=== PATIENT | male | born 1975 | race Caucasian/White ===

== ENCOUNTER → 2021-09-09 11:45 | Outpatient (BNVA) | payer MEDICARE, SELFPAY | PROVIDERS: Visit Provider Family Medicine | DX: G62.9 Polyneuropathy, unspecified (principal); Z76.89 Persons encountering health services in other specified circumstances; R35.89 Other polyuria; I87.2 Venous insufficiency (chronic) (peripheral) | CPT/HCPCS: 82043 ==

== ENCOUNTER 2021-09-10 09:49 | Outpatient (CLI) | payer MEDICARE, SELFPAY ==
[2021-09-10 10:42] LABS: Basophils # 0.1 10^3/uL (0.0-0.1); Basophils % 0.8 %; Eosinophils # 0.2 10^3/uL (0.0-0.8); Eosinophils % 3.6 %; Hematocrit 50.3 % (42.0-52.0); Hemoglobin 16.3 g/dL (11.7-16.6); Lymphocytes # 1.8 10^3/uL (0.8-4.8); Lymphocytes % 27.9 %; Mean Corpuscular HGB Conc 32.4 g/dL (30.0-36.0); Mean Corpuscular Hemoglobin 28.6 pg (28.0-34.0); Mean Corpuscular Volume 88.2 fl (80-94); Monocytes # 0.5 10^3/uL (0.2-0.9); Monocytes % 8.2 %; Neutrophils # 3.71 10^3/uL (1.8-7.7); Neutrophils % 58.4 %; Nucleated Red Blood Cells % 0 %; Platelet Count 147 10^3/cmm (130-400); Red Cell Distribution Width 12.4 % (12.1-15.1); White Blood Count 6.4 10^3/uL (4.0-10.0)
[2021-09-10 11:11] LABS: Alanine Aminotransferase 16 U/L (0-41); Albumin Level 4.4 g/dL (3.5-5.2); Alkaline Phosphatase 109 IU/L (40-130); Anion Gap 12.8 (5-19); Aspartate Amino Transferase 20 U/L (0-40); Blood Urea Nitrogen 17 mg/dL (6-20); Calcium 9.2 mg/dL (8.5-10.5); Carbon Dioxide 27 mmol/L (22-29); Chloride 104 mmol/L (98-107); Chol HDL Ratio 5.24 mg/dL (1.0-5.00); Cholesterol 194 mg/dL (0-200); Globulin 3.2 g/dL (1.3-4.6); Glomerular Filtration Rate 81.2 mL/min (90-130); Glucose 103 mg/dL (65-115); HDL Cholesterol 37 mg/dL (60-100); LDL Cholesterol Calculated 108 mg/dL (50-129); LDL HDL Ratio 2.92 RATIO (0.00-3.22); Osmolality Calculated 290 mOsm/kg (285-295); Potassium 4.8 mmol/L (3.5-5.1); Sodium 139 mmol/L (136-145); Thyroid Stimulating Hormone 2.11 uIU/mL (0.27-4.20); Total Bilirubin 0.4 mg/dL (0.15-1.2); Total Protein 7.6 g/dL (6.6-8.7); Triglycerides 244 mg/dL (0-150)
[2021-09-10 11:40] LABS: Hepatitis C Virus Antibody Non-Reactive (Nonreactive)
[2021-09-10 11:49] LABS: Estmated Average Glucose 97
[2021-09-10 11:52] LABS: HIV 1 & 2 Antibody Non-Reactive (Non-Reactiv); HIV 1 & 2 Antigen Non-Reactive (Non-Reactiv)
== END 2021-09-10 09:50 | disposition home or self-care (01) ==
LOC: LAB 09:51
PROVIDERS: Visit Provider Family Medicine
DX: G62.9 Polyneuropathy, unspecified (principal); I87.2 Venous insufficiency (chronic) (peripheral); R35.89 Other polyuria; Z76.89 Persons encountering health services in other specified circumstances
CPT/HCPCS: 80053; 80061; 83036; 84443; 85025; 86803; 87806

== ENCOUNTER 2021-10-22 12:17 | Outpatient (CLI) | payer MEDICARE, SELFPAY ==
[2021-10-22 13:18] LABS: Erythrocyte Sedimentation Rate 6 mm/hr (0-10)
[2021-10-22 13:44] LABS: Anion Gap 13.2 (5-19); Blood Urea Nitrogen 17 mg/dL (6-20); Calcium 8.8 mg/dL (8.5-10.5); Carbon Dioxide 27 mmol/L (22-29); Chloride 103 mmol/L (98-107); Ferritin 54 ng/mL (30-400); Glomerular Filtration Rate 80.8 mL/min (90-130); Glucose 102 mg/dL (65-115); Iron 105 ug/dL (59-158); Magnesium 2.1 mg/dL (1.7-2.3); Osmolality Calculated 290 mOsm/kg (285-295); Potassium 4.2 mmol/L (3.5-5.1); Sodium 139 mmol/L (136-145)
[2021-10-22 14:00] LABS: Vitamin B12 407 pg/mL (232-1245)
[2021-10-22 14:58] LABS: Rapid Plasma Reagin Syphilis Nonreactive (Nonreactive)
[2021-10-23 10:47] LABS: PROTEIN, TOTAL 6.7 g/dL (6.1-8.1)
[2021-10-23 13:49] LABS: Lymes IGG WB <0.90 index
[2021-10-23 15:08] LABS: ALBUMIN 4.1 g/dL (3.8-4.8); ALPHA 1 GLOBULIN 0.3 g/dL (0.2-0.3); ALPHA 2 GLOBULIN 0.6 g/dL (0.5-0.9); BETA 1 GLOBULIN 0.4 g/dL (0.4-0.6); BETA 2 GLOBULIN 0.3 g/dL (0.2-0.5); GAMMA GLOBULIN 1.1 g/dL (0.8-1.7)
[2021-10-23 16:24] LABS: Anti-Nuclear Antibody Screen NEGATIVE (NEGATIVE)
[2021-10-28 00:23] LABS: Vitamin B1(Thiamin) Plas/Ser 14 nmol/L (8-30)
== END 2021-10-22 12:18 | disposition home or self-care (01) ==
LOC: LAB 12:21
PROVIDERS: Visit Provider Family Medicine
DX: G62.9 Polyneuropathy, unspecified (principal); I87.2 Venous insufficiency (chronic) (peripheral); R35.89 Other polyuria
CPT/HCPCS: 36415; 80048; 82607; 82728; 83540; 83735; 84155; 84165; 84425; 85651; 86038; 86140; 86431; 86592; 86617; 87040

== ENCOUNTER → 2022-01-27 15:00 | Outpatient (BNVA) | payer MEDICARE, SELFPAY | PROVIDERS: Visit Provider Family Medicine | DX: I87.2 Venous insufficiency (chronic) (peripheral) (principal); R35.89 Other polyuria; N41.1 Chronic prostatitis; R31.9 Hematuria, unspecified | CPT/HCPCS: 81000 ==

== ENCOUNTER → 2022-05-11 10:44 | Outpatient (BNVA) | payer MEDICARE, SELFPAY | PROVIDERS: Visit Provider Family Medicine Adult Medicine | DX: J11.1 Influenza due to unidentified influenza virus with other respiratory manifestations (principal); B34.9 Viral infection, unspecified | CPT/HCPCS: 87400 ==

== ENCOUNTER 2022-06-25 09:49 | Emergency (ER) | payer MEDICARE, SELFPAY ==
[2022-06-25] VITALS (10 sets, daily range): BP systolic 138–197; BP diastolic 89–115; PULSE 60–76; RESP 13–20; TEMP 36.6; O2SAT 97–99; BMI 35.6
--- NOTE | 2022-06-25 10:19 | XRR_ITS ---
PROCEDURE INFORMATION: Exam: XR Chest Exam date and time: 06/25/2022 11:08 AM Age: 46 years old Clinical indication: Pain; Left-sided; Additional info: Chest pain on left side. TECHNIQUE: Imaging protocol: Radiologic exam of the chest. Views: 1 view. COMPARISON: No relevant prior studies available. FINDINGS: Lungs: The lung parenchyma is clear. Pleural spaces: No pneumothorax. No pleural effusion. Heart/Mediastinum: The cardiomediastinal silhouette is within normal limits. Bones/joints: Unremarkable. XR/XR chest 1V portable [id number] IMPRESSION: No acute cardiopulmonary abnormality.
--- NOTE | 2022-06-25 10:20 | ECG_ITS ---
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 Measurements Intervals [place] Rate: 70 P: 57 TN: 210 QRS: 72 QRSD: 104 T: 65 QT: 395 QTc: 429 Interpretive Statements SINUS RHYTHM WITH FIRST DEGREE AV BLOCK No previous ECG available for comparison Electronically Signed On 06-25-2022 14:42:05 VENTILATED RIB FITTER by Carl Goel M.D. [id number]
[2022-06-25 11:14] LABS: Basophils % 0.6 %; Eosinophils # 0.2 10^3/uL (0.0-0.8); Eosinophils % 2.5 %; Hematocrit 41.5 % (42.0-52.0); Hemoglobin 13.8 g/dL (11.7-16.6); Lymphocytes # 1.4 10^3/uL (0.8-4.8); Lymphocytes % 21.4 %; Mean Corpuscular HGB Conc 33.3 g/dL (30.0-36.0); Mean Corpuscular Hemoglobin 28.2 pg (28.0-34.0); Mean Corpuscular Volume 84.9 fl (80-94); Mean Platelet Volume 10.6 fL (7.4-10.4); Monocytes # 0.4 10^3/uL (0.2-0.9); Monocytes % 5.7 %; Neutrophils # 4.46 10^3/uL (1.8-7.7); Neutrophils % 69.3 %; Nucleated Red Blood Cells % 0 %; Platelet Count 199 10^3/cmm (130-400); Red Blood Count 4.89 10^6/uL (4.1-5.3); Red Cell Distribution Width 12.8 % (12.1-15.1); White Blood Count 6.4 10^3/uL (4.0-10.0)
--- NOTE | 2022-06-25 11:17 | ED_ITS ---
HPI - Chest Pain General: Chief Complaint: Chest Pain Stated Complaint: left side/abd pain Time Seen by Provider: 06/25/22 10:03 Source: patient Mode of arrival: ambulatory History of Present Illness: 46-year-old male presents emergency room complaining of left-sided chest pain for the last 3 days. Worse this morning is on is anything that exacerbates or relieves is not really taking anything for it. No vomiting or diarrhea no known history of coronary artery disease. Denies shortness of breath diaphoresis. No recent illness. MD complaint: chest pain Onset (ago): day(s) (3) Timing of current episode: episodic Prior episodes: Yes Onset: during rest Pain location: left chest Pain radiation: none Quality: tightness, aching and heaviness Relieving factors: nothing Associated symptoms: Deny abdominal pain, diaphoresis, dyspnea, fever(s), leg edema, nausea, palpitations, sense of impending doom, syncope or vomiting Treatment prior to arrival: none Review of Systems Const: Denies: fever(s), chills, fatigue, malaise or diaphoresis ENMT: Denies: throat pain, ear or mastoid pain, nasal discharge or nasal conge stion Card: Reports: chest pain; Denies: palpitations or syncope Resp: Denies: dyspnea GI: Denies: abdominal pain, nausea or vomiting : Denies: flank pain, dysuria, urinary frequency or urinary urgency Skin/Breast: Denies: rash or pruritus [facility] ED PFSH: Medical History Viral syndrome Social History Smoking and tobacco status: current every day smoker Alcohol intake: never Physical Exam Const: COMMON NORMALS: no acute distress GENERAL APPEARANCE: cooperative and comfortable ORIENTATION/CONSCIOUSNESS: Yes awake, Yes oriented to person, Yes oriented to place and Yes oriented to time HENMT: COMMON NORMALS: normocephalic, atraumatic, hearing grossly normal bilaterally, external ears normal, EAC's normal, TM's normal bilaterally, Normal nasal mucous membranes and turbinates present, moist oral mucous membranes and oropharynx normal HEAD & SCALP: normocephalic and atraumatic NOSE: Normal nasal mucous membranes and turbinates present EXTERNAL EAR: Yes external ears normal EXTERNAL AUDITORY CANAL: EAC's normal TYMPANIC MEMBRANE: TM's normal bilaterally Eye: COMMON NORMALS: Equal, round and reactive pupils present, EOMs intact bilaterally, conjunctivae normal and no scleral icterus CONJUNCTIVA: Yes conjunctivae normal PUPIL: Yes Equal, round and reactive pupils present Neck/C-Spine: COMMON NORMALS: full ROM, no lymphadenopathy, supple and no JVD Lymph: LYMPHATIC: no lymphadenopathy noted and no lymphedema noted Resp: COMMON NORMALS: normal respiratory effort, No retractions, No use of accessory muscles and clear to auscultation bilaterally AUSCULTATION: clear to auscultation bilaterally Cardio: COMMON NORMALS: no JVD, regular rate, regular rhythm and No murmurs present (Cardio) RATE: regular rate RHYTHM: regular rhythm GI: COMMON NORMALS: Soft to palpation and No hepatosplenomegaly present AUSCULTATION: Yes normoactive bowel sounds PALPATION: Yes Soft to palpation, No Tenderness to palpation present (GI), No Guarding due to palpation present (GI) and Yes No hepatosplenomegaly present Extremity: COMMON NORMALS: normal to inspection, capillary refill normal, no clubbing, cyanosis or edema, no calf tenderness and no pedal edema Neuro: SENSORIUM/ORIENTATION: Yes oriented to person, Yes oriented to place and Yes oriented to time Skin: COMMON NORMALS: no rashes or lesions noted GENERAL SKIN EXAM: no rashes or lesions noted Course Vital Signs: Vital signs: Vital Signs Temperature 98 F 06/25/22 10:09 Pulse Rate 62 06/25/22 15:00 Respiratory Rate 16 06/25/22 14:00 Blood Pressure 142/89 06/25/22 15:29 Pulse Oximetry 98 06/25/22 15:00 Oxygen Delivery Me thod 06/25/22 15:00 MDM - Chest Pain Medical Decision Making Labs imaging and EKG reviewed. No acute EKG changes noted cardiac enzymes negative. We will discharge patient home encouraged to take aspirin daily set him up for outpatient Lexiscan sestamibi stress test. Should monitor blood pressure was elevated and is here but there is improved before he left did not discharge him home on medications for it. Medical Records I reviewed the patient's medical records. Lab Data I reviewed the patient's lab results. 06/25/22 11:03 06/25/22 11:03 Radiology Impressions Chest X-Ray 06/25/22 10:19 IMPRESSION: No acute cardiopulmonary abnormality. Laboratory Results WBC 6.4 10^3/uL (4.0-10.0) 06/25/22 11:03 RBC 4.89 10^6/uL (4.1-5.3) 06/25/22 11:03 Hgb 13.8 g/dL (11.7-16.6) 06/25/22 11:03 Hct 41.5 % (42.0-52.0) L 06/25/22 11:03 MCV 84.9 fl (80-94) 06/25/22 11:03 MCH 28.2 pg (28.0-34.0) 06/25/22 11:03 MCHC 33.3 g/dL (30.0-36.0) 06/25/22 11:03 RDW 12.8 % (12.1-15.1) 06/25/22 11:03 Plt Count 199 10^3/cmm (130-400) 06/25/22 11:03 MPV 10.6 fL (7.4-10.4) H 06/25/22 11:03 Neut % (Auto) 69.3 % 06/25/22 11:03 Lymph % (Auto) 21.4 % 06/25/22 11:03 [place] % (Auto) 5.7 % 06/25/22 11:03 Eos % (Auto) 2.5 % 06/25/22 11:03 Baso % (Auto) 0.6 % 06/25/22 11:03 Neut # (Auto) 4.46 10^3/uL (1.8-7.7) 06/25/22 11:03 Lymph # (Auto) 1.4 10^3/uL (0.8-4.8) 06/25/22 11:03 [place]o # (Auto) 0.4 10^3/uL (0.2-0.9) 06/25/22 11:03 Eos # (Auto) 0.2 10^3/uL (0.0-0.8) 06/25/22 11:03 Baso # (Auto) 0.0 10^3/uL (0.0-0.1) 06/25/22 11:03 Nucleated RBC % (auto) 0 % 06/25/22 11:03 Nucleated RBCs # 0.0 /100WBC 06/25/22 11:03 PT 13.30 SECONDS (12.1-14.9) 06/25/22 11:03 INR 0.98 (0.8-1.2) 06/25/22 11:03 APTT 28.7 SECONDS (23.9-36.7) 06/25/22 11:03 Sodium 138 mmol/L (136-145) 06/25/22 11:03 Potassium 4.8 mmol/L (3.5-5.1) 06/25/22 11:03 Chloride 101 mmol/L (98-107) 06/25/22 11:03 Carbon Dioxide 28 mmol/L (22-29) 06/25/22 11:03 Anion Gap 13.8 (5-19) 06/25/22 11:03 BUN 20 mg/dL (6-20) 06/25/22 11:03 Creatinine 1.1 mg/dL (0.7-1.2) 06/25/22 11:03 GFR Calculation 72.4 mL/min (90-130) L 06/25/22 11:03 Glucose 98 mg/dL (65-115) 06/25/22 11:03 Calculated Osmolality 289 mOsm/kg (285-295) 06/25/22 11:03 Calcium 9.0 mg/dL (8.5-10.5) 06/25/22 11:03 Total Bilirubin 0.3 mg/dL (0.15-1.2) 06/25/22 11:03 AST 19 U/L (0-40) 06/25/22 11:03 ALT 14 U/L (0-41) 06/25/22 11:03 Alkaline Phosphatase 101 U/L (40-130) 06/25/22 11:03 Troponin T Baseline 8 ng/L (0-15) 06/25/22 11:03 Troponin T 120 Minute 7.85 ng/L (0-15) 06/25/22 13:48 Delta Troponin T -0.15 ABS# (0-10) L 06/25/22 13:48 Total Protein 7.5 g/dL (6.6-8.7) 06/25/22 11:03 Albumin 4.5 g/dL (3.5-5.2) 06/25/22 11:03 Globulin 3.0 g/dL (1.3-4.6) 06/25/22 11:03 Lipase 24 U/L (13-60) 06/25/22 11:03 Discharge Plan Discharge Patient Disposition: Home Clinical Impression: Atypical chest pain Condition: Stable Prescriptions: New aspirin 81 mg tablet,delayed release (DR/EC) 81 mg PO DAILY Qty: 30 0RF diclofenac sodium 75 mg tablet,delayed release (DR/EC) 75 mg PO Q12H PRN (Reason: pain) Qty: 20 0RF No Action (DME) Compression stockings See Rx Instructions .Route .MEDSUPPLY Qty: 2 0RF Rx Instructions: Please issue 2 pair of knee high compression stockings with 10-20 mmHg. Discharge Orders: Discharge ED (Routine); Ordered 06/25/22 Ordered By: Kvng Cisneros Referrals: Dickson Tavarez, [Primary Care Provider] - Discharge Diet: Usual diet Discharge Activity: Limit activity as instructed Patient Instructions: Opioid Safety, Pain Management Activity Restrictions/Additional Instructions: You were seen today for atypical chest pain. Your cardiac enzymes and EKG did not show any acute changes. Your blood pressure was elevated when you arrived and then normalized. We will set you up for an outpatient Lexiscan sestamibi stress test recommend that you do take baby aspirin daily until that is completed and avoid strenuous activities. Diclofenac for the chest wall pain worsened by inspiration and palpation. Return if you have further problems. Coding Level of Care Code ED Construction Project Manager for Thierry Castellanos
[2022-06-25] MEDS: ketorolac 30 mg/mL INJ IVP (11:28)
[2022-06-25 11:31] LABS: INR 0.98 (0.8-1.2)
[2022-06-25 11:32] LABS: Partial Thromboplastin Time 28.7 SECONDS (23.9-36.7)
[2022-06-25 11:40] LABS: Troponin(5th) Baseline 8 ng/L (0-15)
[2022-06-25 11:43] LABS: Alanine Aminotransferase 14 U/L (0-41); Albumin Level 4.5 g/dL (3.5-5.2); Alkaline Phosphatase 101 U/L (40-130); Anion Gap 13.8 (5-19); Aspartate Amino Transferase 19 U/L (0-40); Blood Urea Nitrogen 20 mg/dL (6-20); Carbon Dioxide 28 mmol/L (22-29); Chloride 101 mmol/L (98-107); Glomerular Filtration Rate 72.4 mL/min (90-130); Glucose 98 mg/dL (65-115); Lipase 24 U/L (13-60); Osmolality Calculated 289 mOsm/kg (285-295); Potassium 4.8 mmol/L (3.5-5.1); Sodium 138 mmol/L (136-145); Total Bilirubin 0.3 mg/dL (0.15-1.2); Total Protein 7.5 g/dL (6.6-8.7)
--- NOTE | 2022-06-25 12:19 | ECG_ITS ---
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 Measurements Intervals [place] Rate: 62 P: 57 UT: 210 QRS: 66 QRSD: 113 T: 65 QT: 420 QTc: 429 Interpretive Statements SINUS RHYTHM WITH FIRST DEGREE AV BLOCK POSSIBLE RIGHT VENTRICULAR CONDUCTION DELAY [RSR (QR) IN V1/V2] Compared to ECG 06/25/2022 10:20:28 No significant changes Electronically Signed On 06-25-2022 14:45:56 TABLE WORKER PACKAGER by Carl Goel M.D. [id number]
[2022-06-25] MEDS: amlodipine 10 mg Tablet PO (13:30)
[2022-06-25] MEDS: HYDROcodone-acetaminophen 5-325 mg Tablet 1 TAB PO (13:39)
[2022-06-25 14:21] LABS: Troponin 5 2HR 7.85 ng/L (0-15)
[2022-06-25 14:28] LABS: Troponin 5 2HR Delta -0.15 ABS# (0-10)
--- NOTE | 2022-06-26 09:32 | DCPLANNER ---
Addendum entered by Gloria Parra 08/24/22 07:44: Patient had an outpatient stress test - patient did not attend appointment Addendum entered by Gloria Parra 08/19/22 15:55: Patient has a follow up appointment scheduled for Wednesday, August 21, 2022 at 9:00 for a stress test. Original Note: numerical analysis group manager had message to schedule an outpatient stress test for patient. numerical analysis group manager faxed signed order to centralized scheduling, who will call patient with appointment information.
== END 2022-06-25 15:30 | disposition home or self-care (01) ==
PROVIDERS: Nurse Practitioner Family; Emergency Provider Family Medicine; PCP Family Medicine
DX: R07.89 Other chest pain (principal); F17.210 Nicotine dependence, cigarettes, uncomplicated
CPT/HCPCS: 36415; 71045; 80053; 83690; 84484; 85025; 85610; 85730; 93005; 96374; 99285; J1885